=== PATIENT | male | born 1985 | race Caucasian/White ===

== ENCOUNTER 2018-03-13 19:11 | Inpatient (IN) | payer OTHER ==
[~2018-03-13] VITALS: Ht 165.1 cm; Wt 61.8 kg
[~2018-03-13 19:11] MED LIST: CEPH500 PO; CYCL10 PO; HYDR1TAB94 PO; Keflex500 MG PO; Levaquin750 MG PO; Naprosyn500 MG PO; Norco 5-325 Ta1 EACH PO; OXYC10TA19 PO; Percocet 5-3251 EACH PO; Roxicodone5 MG PO
[2018-03-13 20:41] LABS: BASOPHILS PERCENT AUTO 1 % (0-2); EOSINOPHILS ABSOLUTE AUTO 0.05 K/mm3 (0.00-0.68); EOSINOPHILS PERCENT AUTO 0 % (0-6); Hematocrit 48.8 % (37.0-53.0); Hemoglobin 15.7 g/dL (13.5-17.5); IMMATURE GRAN ABSOLUTE AUTO 0.19 K/mm3 (0.00-0.10); IMMATURE GRAN PERCENT AUTO 1 % (0-1); LYMPHOCYTES ABSOLUTE AUTO 2.23 K/mm3 (0.84-5.20); LYMPHOCYTES PERCENT AUTO 12 % (21-46); MONOCYTES ABSOLUTE AUTO 1.35 K/mm3 (0.16-1.47); MONOCYTES PERCENT AUTO 7 % (4-13); Mean Corpuscular HGB 30.3 pg (26.0-34.0); Mean Corpuscular HGB Conc 32.2 g/dL (31.5-36.5); Mean Corpuscular Volume 94 fL (80-100); NEUTROPHILS ABSOLUTE AUTO 15.33 K/mm3 (1.96-9.15); NEUTROPHILS PERCENT AUTO 80 % (41-73); Platelet Count 266 K/mm3 (150-400); RDW Coefficient Variation 13.1 % (11.7-14.2); RDW Standard Deviation 45.7 fL (35.1-46.3); Red Blood Cell Count 5.19 M/mm3 (4.30-5.90); White Blood Cell Count 19.25 K/mm3 (4.00-11.30)
[2018-03-13 21:04] LABS: Alanine Aminotransfer (ALT/SGP 22 U/L (12-78); Alk Phos 88 U/L (50-136); Anion Gap 9 mmol/L (6-16); Aspartate Aminotrans (AST/SGOT 17 U/L (12-37); Bilirubin, Total 1.3 mg/dL (0.1-1.0); Blood Urea Nitrogen 10 mg/dL (8-24); Bun/Creatinine Ratio 11.3 (12.0-20.0); CO2, Blood 25 mmol/L (21-32); Calcium, Blood 8.5 mg/dL (8.5-10.1); Chloride, Blood 99 mmol/L (98-108); Creatinine, Blood 0.88 mg/dL (0.60-1.20); Glomerular Filtration Rate >60 (60-); Glucose, Blood 100 mg/dL (70-99); Potassium, Blood 3.9 mmol/L (3.5-5.5); Sodium, Blood 133 mmol/L (136-145)
[2018-03-13 23:18] LABS: CPK Creatine Kinase 93 U/L (39-308)
[2018-03-13 23:21] LABS: Creatine Kinase MB < 1.0 ng/mL (0.0-3.6); Creatine Kinase MB Index 1.1 (0.0-4.0)
--- NOTE | 2018-03-14 06:42 | NUR ---
SHIFT SUMMARY 0025 RECEIVED PT TO 311 VIA W/C FROM ER. PT IS A&O AND ABLE TO TX SELF TO BED. PT ADMITTED FOR L ARM CELLULITIS. RECEIVED REPORT FROM KATIE OSORIO; PT TRIPPED OVER DOG ON FRONT PORCH AND RECEIVED SCRATCH ON ARM. ABX STARTED IN ER. PT RESTING L ARM ON ICE BAG WHEN COMING TO . ICE BAG REFILLED PRN. REDNESS/SWELLING CONTINUES. PT MEDICATED FOR C/O PAIN X1 THIS SHIFT. IVF'S AND ABX INFUSING PER EMAR. PT RESTING QUIETLY AT THIS TIME, SLEEPING. CALL LT IN REACH. ABLE TO MAKE NEEDS KNOWN.
[2018-03-14 09:22] LABS: Hematocrit 40.6 % (37.0-53.0); Hemoglobin 13.8 g/dL (13.5-17.5); Mean Corpuscular HGB 30.1 pg (26.0-34.0); Mean Platelet Volume 9.9 fL (9.1-12.4); Platelet Count 234 K/mm3 (150-400); RDW Coefficient Variation 13.2 % (11.7-14.2); RDW Standard Deviation 42.7 fL (35.1-46.3); Red Blood Cell Count 4.58 M/mm3 (4.30-5.90); White Blood Cell Count 16.71 K/mm3 (4.00-11.30)
[2018-03-14 09:26] LABS: Mean Corpuscular Volume 89 fL (80-100)
[2018-03-14 09:34] LABS: Alanine Aminotransfer (ALT/SGP 14 U/L (12-78); Albumin, Blood 3.2 g/dL (3.4-5.0); Albumin/Globulin Ratio 0.9 (0.8-1.8); Alk Phos 72 U/L (50-136); Anion Gap 8 mmol/L (6-16); Aspartate Aminotrans (AST/SGOT 14 U/L (12-37); Bilirubin, Total 1.4 mg/dL (0.1-1.0); Blood Urea Nitrogen 12 mg/dL (8-24); Bun/Creatinine Ratio 8.3 (12.0-20.0); CO2, Blood 24 mmol/L (21-32); Calcium, Blood 7.7 mg/dL (8.5-10.1); Chloride, Blood 107 mmol/L (98-108); Creatinine, Blood 1.44 mg/dL (0.60-1.20); Globulin, Blood 3.5 g/dL (2.2-4.0); Glomerular Filtration Rate >60 (60-); Glucose, Blood 98 mg/dL (70-99); Potassium, Blood 3.9 mmol/L (3.5-5.5); Sodium, Blood 139 mmol/L (136-145); Total Protein, Blood 6.7 g/dL (6.4-8.2)
--- NOTE | 2018-03-14 16:57 | NUR ---
PT GAVE THIS STUDENT NURSE PERMISSION TO CARE FOR HIM TOMORROW.
--- NOTE | 2018-03-14 19:19 | NUR ---
SHIFT SUMMARY BRETT'S L FOREARM CELLULITIS --RED AREA DECREASED IN SIZE AND INCREASED IN PAIN AND SWELLING AT SITE--ULTRASOUND PERFORMED, LOOKS LIKE ABSCESS FORMING. IVF AND TELE DISCONTINUED. PRN OXY AND FENTANYL WORKING WELL FOR PAIN. POSSIBLE I&d TOMORROW
[2018-03-14 23:52] LABS: Vancomycin, Trough 28.3 ug/mL (5.0-10.0)
[2018-03-15 05:37] LABS: BASOPHILS ABSOLUTE AUTO 0.05 K/mm3 (0.00-0.23); BASOPHILS PERCENT AUTO 0 % (0-2); EOSINOPHILS ABSOLUTE AUTO 0.21 K/mm3 (0.00-0.68); EOSINOPHILS PERCENT AUTO 1 % (0-6); Hematocrit 41.1 % (37.0-53.0); IMMATURE GRAN ABSOLUTE AUTO 0.21 K/mm3 (0.00-0.10); IMMATURE GRAN PERCENT AUTO 1 % (0-1); LYMPHOCYTES ABSOLUTE AUTO 2.26 K/mm3 (0.84-5.20); LYMPHOCYTES PERCENT AUTO 13 % (21-46); MONOCYTES ABSOLUTE AUTO 2.66 K/mm3 (0.16-1.47); MONOCYTES PERCENT AUTO 15 % (4-13); Mean Corpuscular HGB 30.1 pg (26.0-34.0); Mean Corpuscular HGB Conc 34.1 g/dL (31.5-36.5); Mean Corpuscular Volume 88 fL (80-100); Mean Platelet Volume 9.8 fL (9.1-12.4); NEUTROPHILS PERCENT AUTO 70 % (41-73); Platelet Count 238 K/mm3 (150-400); RDW Coefficient Variation 13.2 % (11.7-14.2); Red Blood Cell Count 4.65 M/mm3 (4.30-5.90); White Blood Cell Count 17.99 K/mm3 (4.00-11.30)
--- NOTE | 2018-03-15 05:56 | NUR ---
SHIFT SUMMARY NO ACUTE CHANGES TO PRESENT THIS SHIFT. PT STAYS AWAKE MOST OF NIGHT AND GOES TO SLEEP IN THE MORNINGS. PT MEDICATED FOR C/O PAIN AFTER MN. ICE BAGS GIVEN THRU OUT THE SHIFT FOR LFA. REDNESS AND SWELLING BECOMING MORE LOCALIZED ON FORARM, JUST BELOW ELBOW. NEW IV PLACED TO RFA, PT TOLERATED WELL. PER SHIFT REPORT, FRANCISCA IV HAD POSSIBLY STARTED TO LEAK. VANCO TROUGH DONE BEFORE MN DOSE, RESULTED HIGH. VANCO HELD AT THAT TIME. NEW LEVEL DRAWN THIS AM. PHARMACY MANAGING. PT IS A&O, INDEPENDANT TO [facility]. ABLE TO MAKE NEEDS KNOWN. MALE ELECTROMECHANICAL INSPECTOR STAYING IN WITH PT. POSSIBLE I&D ON LFA ABSCESS TODAY, PER LAST WRAPPER HANDS SPRAYER REPORT.
[2018-03-15 06:07] LABS: Vancomycin, Random 19.1 ug/mL
[2018-03-15 06:08] LABS: Bun/Creatinine Ratio 7.3 (12.0-20.0); Calcium, Blood 8.1 mg/dL (8.5-10.1); Creatinine, Blood 2.34 mg/dL (0.60-1.20); Potassium, Blood 3.9 mmol/L (3.5-5.5)
--- NOTE | 2018-03-15 19:12 | NUR ---
SHIFT SUMMARY: NO ACUTE CHANGES TO REPORT THIS SHIFT. PT A&O; CALM AND COOPERATIVE WITH CARE. MEDICATED FOR PAIN PER EMAR. CELLULITIS L FA; IV ABX CONTINUING. REPORT GIVEN TO ONCOMING RN.
--- NOTE | 2018-03-16 05:26 | NUR ---
SHIFT SUMMARY PER SHIFT REPORT, PT WANTED TO BECOME CONFIDENTIAL AND THEREFORE MOVED TO RM 324 FROM 311. PER REPORT, PT ALSO HAD LEFT HOSPITAL FOR OVER 2 HRS AND THEN RETURNED. PT INFORMED TO REMAIN IN RM OR RETURN IN REASONABLE AMOUNT OF TIME. PT LYING HF IN BED DURING SHIFT REPORT. LATER C/O PAIN AND REQUESTED PAIN MEDICATION. ADMINISTERED PER EMAR AND PT REQUEST. CONSULT CALLED TO DR MORRISON'S ANS PER ORDERS. NEW ORDERS PLACED ON CHART FOR PT TO BE MADE NPO AT [place]. PT INFORMED AND VERBALIZED UNDERSTANDING. PT LATER REQUESTED IV SITE TO RUQ BE REMOVED. SITE FLUSHED AND FOUND TO LEAK A VERY SM AMT. IV SITED D/C'D WNL'S. PT IS PRESENTLY NPO AND HAS BEEN SINCE FL. VS TAKEN THIS AM. TEMP INCREASED FROM PREVIOUS. ICE BAGS TO AXILLARY AND NECK PLACED. SWELLING TO L ARM DECREASED FROM TUESDAY. REMAINS RED. CALL LT IN REACH.
[2018-03-16 06:25] LABS: Vancomycin, Random 14.5 ug/mL
--- NOTE | 2018-03-16 07:30 | NUR ---
PT. SLEEPING, BEING KEPT NPO FOR I&D THIS MORNING WILL ALSO HOLD THE LOVENOX. SO SLEEPING ON COUCH IN ROOM.
--- NOTE | 2018-03-16 10:40 | NUR ---
PT. TO OR VIA CART. NEW IV IN RFA AND CEFTRIAXONE INFUSING AND VANCO SENT WITH PT.
--- NOTE | 2018-03-16 11:00 | NUR ---
Ambulatory in Day Surgery History, Chart, Medications and Allergies reviewed before start of procedure.Lungs clear T/O to Auscultation. Patient confirms NPO status and agrees with scheduled surgery. PT Nat WEAVER AT BEDSIDE. PT R ARM ELEVATED BY PATIENT.
--- NOTE | 2018-03-16 12:45 | NUR ---
03/16/18 1245 Bekah Welch A PATIENT ON SCHEDULED VANCO AND ROCEPHIN. NO LOCAL USED.
--- NOTE | 2018-03-16 17:31 | NUR ---
PT. LYING QUIETLY SLEEPING. NO S/S OF PAIN SINCE RECEIVING DAJUAN AND TYLENOL. GOOD ROM WITH LEFT HAND AND FINERS, DENIES PAIN AND NAUSEA. NO DRAINAGE NOTED ON DRESSING.
--- NOTE | 2018-03-17 04:21 | NUR ---
SHIFT SUMMARY PT HAD SOME ISSUES WITH UNCONTROLLED PAIN DURING SHIFT. PT ARM HAD INCREASED SWELLING NOTED. PT WAS INSTRUCTED TO ELEVATE ARM AND USE PROVIDED ICE PACK. SWELLING DECREASED BUT PAIN REMAINED UNCONTROLLED. PROVIDER CALLED AND FREQUENCY OF PAIN MEDS WAS CHANGED. PT RESPONDED WELL TO CHANGE WITH PAIN BEING MANAGED WELL. PT IS CURRENTLY SLEEPING AND BREATHING EASY. WILL CONTINUE TO ASSESS ARM AND TX PAIN PER EMAR. CALL LIGHT IN REACH.
--- NOTE | 2018-03-17 04:53 | NUR ---
DURING MORNING VSS PT HAD TEMP TX PER EMAR. PT ALSO HAD INCREASED DISCOMFORT AND WAS TX PER EMAR. PT DISCOMFORT DECREASED.
[2018-03-17 05:00] LABS: BASOPHILS ABSOLUTE AUTO 0.03 K/mm3 (0.00-0.23); BASOPHILS PERCENT AUTO 0 % (0-2); EOSINOPHILS ABSOLUTE AUTO 0.06 K/mm3 (0.00-0.68); EOSINOPHILS PERCENT AUTO 0 % (0-6); Hematocrit 42.8 % (37.0-53.0); Hemoglobin 13.9 g/dL (13.5-17.5); IMMATURE GRAN PERCENT AUTO 1 % (0-1); LYMPHOCYTES ABSOLUTE AUTO 1.99 K/mm3 (0.84-5.20); LYMPHOCYTES PERCENT AUTO 14 % (21-46); MONOCYTES PERCENT AUTO 15 % (4-13); Mean Corpuscular HGB 29.8 pg (26.0-34.0); Mean Corpuscular HGB Conc 32.5 g/dL (31.5-36.5); Mean Platelet Volume 9.9 fL (9.1-12.4); NEUTROPHILS ABSOLUTE AUTO 10.14 K/mm3 (1.96-9.15); NEUTROPHILS PERCENT AUTO 70 % (41-73); Platelet Count 279 K/mm3 (150-400); RDW Coefficient Variation 13.3 % (11.7-14.2); RDW Standard Deviation 45.6 fL (35.1-46.3); Red Blood Cell Count 4.66 M/mm3 (4.30-5.90); White Blood Cell Count 14.52 K/mm3 (4.00-11.30)
[2018-03-17 05:01] LABS: Mean Corpuscular Volume 92 fL (80-100)
[2018-03-17 05:25] LABS: Alanine Aminotransfer (ALT/SGP 10 U/L (12-78); Albumin, Blood 2.8 g/dL (3.4-5.0); Albumin/Globulin Ratio 0.7 (0.8-1.8); Alk Phos 66 U/L (50-136); Anion Gap 7 mmol/L (6-16); Aspartate Aminotrans (AST/SGOT 9 U/L (12-37); Bilirubin, Total 0.7 mg/dL (0.1-1.0); Blood Urea Nitrogen 20 mg/dL (8-24); Bun/Creatinine Ratio 7.6 (12.0-20.0); CO2, Blood 24 mmol/L (21-32); Calcium, Blood 7.7 mg/dL (8.5-10.1); Chloride, Blood 106 mmol/L (98-108); Creatinine, Blood 2.64 mg/dL (0.60-1.20); Globulin, Blood 4.3 g/dL (2.2-4.0); Glomerular Filtration Rate 30 (60-); Glucose, Blood 87 mg/dL (70-99); Potassium, Blood 4.6 mmol/L (3.5-5.5); Sodium, Blood 137 mmol/L (136-145); Total Protein, Blood 7.1 g/dL (6.4-8.2); Vancomycin, Trough 15.8 ug/mL (5.0-10.0)
--- NOTE | 2018-03-17 08:00 | NUR ---
PT PLEASANT COOP A/O. STATES PAIN IN L ARM WHERE CELLULITIS. SOME SWELLING AND REDNESS NOTED IN HAND ALSO. DR ZAMORA NOTIFIED. MED FOR PAIN PER EMAR. PT TO CALL WHEN MEDS AVAIL. H/R REG, NO MURMER NOTED. NO TELE. LUNGS CLEAR, RESP EASY, UNLABORED. ON R/A. BT X4 LAST BM THIS AM. VOIDS INDEPENDANT TO BATHROOM, BED IN LOW POSITION, CALL LITE IN REACH, CALLS APPROP
--- NOTE | 2018-03-17 14:00 | NUR ---
PT DR SANCHEZ IN ROOM. REQUESTED ARM SLING TYPE SETUP. TO KEEP ABOVE HEART. DONE
--- NOTE | 2018-03-17 18:42 | NUR ---
PT SITTING UP WATCHING TV. LET ARM DOWN FROM SLING FOR A FEW MIN. JUST CAME BACK FROM VOIDING. PT STATES PAIN UP SOME. WILL PASS TO DEAN RN TO ASSESS. NO OTHER CONCERNS AT THIS TIME. BED IN LOW POSITION, CALL LITE IN REACH. CALLS APPROP
--- NOTE | 2018-03-18 04:53 | NUR ---
SHIFT SUMMARY PT SLEPT POOR, HAS BEEN REQUESTING PAIN MEDICATIONS EVERY 4 HOURS, ALSO RECEIVING BREAKTHROUGH PAIN MEDICATION. HAS BEEN KEEPING LEFT ARM ELEVATED DURING THE NIGHT. NO ACUTE CHANGES NOTED, WILL CONTINUE TO MONITOR.
[2018-03-18 05:04] LABS: BASOPHILS ABSOLUTE AUTO 0.05 K/mm3 (0.00-0.23); BASOPHILS PERCENT AUTO 0 % (0-2); EOSINOPHILS ABSOLUTE AUTO 0.14 K/mm3 (0.00-0.68); EOSINOPHILS PERCENT AUTO 1 % (0-6); Hematocrit 37.6 % (37.0-53.0); Hemoglobin 12.6 g/dL (13.5-17.5); IMMATURE GRAN ABSOLUTE AUTO 0.07 K/mm3 (0.00-0.10); IMMATURE GRAN PERCENT AUTO 1 % (0-1); LYMPHOCYTES ABSOLUTE AUTO 2.05 K/mm3 (0.84-5.20); LYMPHOCYTES PERCENT AUTO 16 % (21-46); MONOCYTES ABSOLUTE AUTO 1.72 K/mm3 (0.16-1.47); MONOCYTES PERCENT AUTO 13 % (4-13); Mean Corpuscular HGB 30.1 pg (26.0-34.0); Mean Corpuscular HGB Conc 33.5 g/dL (31.5-36.5); Mean Corpuscular Volume 90 fL (80-100); NEUTROPHILS ABSOLUTE AUTO 9.09 K/mm3 (1.96-9.15); NEUTROPHILS PERCENT AUTO 69 % (41-73); Platelet Count 287 K/mm3 (150-400); RDW Coefficient Variation 13.5 % (11.7-14.2); RDW Standard Deviation 44.7 fL (35.1-46.3); Red Blood Cell Count 4.18 M/mm3 (4.30-5.90); White Blood Cell Count 13.12 K/mm3 (4.00-11.30)
[2018-03-18 05:29] LABS: Albumin, Blood 2.4 g/dL (3.4-5.0); Anion Gap 8 mmol/L (6-16); Blood Urea Nitrogen 17 mg/dL (8-24); Bun/Creatinine Ratio 7.1 (12.0-20.0); CO2, Blood 23 mmol/L (21-32); Calcium, Blood 7.7 mg/dL (8.5-10.1); Chloride, Blood 108 mmol/L (98-108); Creatinine, Blood 2.39 mg/dL (0.60-1.20); Glomerular Filtration Rate 34 (60-); Glucose, Blood 101 mg/dL (70-99); Phosphorus, Blood 4.6 mg/dL (2.5-4.9); Potassium, Blood 4.4 mmol/L (3.5-5.5); Sodium, Blood 139 mmol/L (136-145)
[2018-03-18 05:37] LABS: Magnesium, Blood 2.4 mg/dL (1.6-2.4)
--- NOTE | 2018-03-18 17:00 | NUR ---
SHIFT SUMMARY- PT A/OX4, INDEP OOB. PT MEDICATED Q4H WITH ROXICODONE AND FENTANYL FOR PAIN TO LEFT ARM. LEFT ARM DRESSING REMOVED AND PT UP AND SHOWERED. STEPHANIE DRAIN IN PLACE, SWELLING PRESENT BUT PT REPORTS IMPROVED. PT REMAINS ON IVF PER DR STALEY. NO OTHER ACUTE CHANGES THIS SHIFT.
[2018-03-19 05:00] LABS: BASOPHILS ABSOLUTE AUTO 0.03 K/mm3 (0.00-0.23); BASOPHILS PERCENT AUTO 0 % (0-2); EOSINOPHILS ABSOLUTE AUTO 0.29 K/mm3 (0.00-0.68); EOSINOPHILS PERCENT AUTO 3 % (0-6); Hematocrit 39.9 % (37.0-53.0); Hemoglobin 13.1 g/dL (13.5-17.5); IMMATURE GRAN ABSOLUTE AUTO 0.05 K/mm3 (0.00-0.10); IMMATURE GRAN PERCENT AUTO 0 % (0-1); LYMPHOCYTES ABSOLUTE AUTO 2.07 K/mm3 (0.84-5.20); LYMPHOCYTES PERCENT AUTO 18 % (21-46); MONOCYTES ABSOLUTE AUTO 1.11 K/mm3 (0.16-1.47); MONOCYTES PERCENT AUTO 10 % (4-13); Mean Corpuscular HGB Conc 32.8 g/dL (31.5-36.5); Mean Corpuscular Volume 92 fL (80-100); Mean Platelet Volume 9.9 fL (9.1-12.4); NEUTROPHILS ABSOLUTE AUTO 7.68 K/mm3 (1.96-9.15); NEUTROPHILS PERCENT AUTO 68 % (41-73); Platelet Count 285 K/mm3 (150-400); RDW Coefficient Variation 13.2 % (11.7-14.2); RDW Standard Deviation 44.8 fL (35.1-46.3); Red Blood Cell Count 4.36 M/mm3 (4.30-5.90); White Blood Cell Count 11.23 K/mm3 (4.00-11.30)
--- NOTE | 2018-03-19 05:04 | NUR ---
SHIFT SUMMARY PT SLEPT WELL, STILL REQUESTING PAIN MEDICATION ABOUT EVERY 4 HOURS. PT NEEDED BREAKTHROUGH ONLY ONE TIME TONIGHT. NO ACUTE CHANGES NOTED, WILL CONTINUE TO MONITOR.
[2018-03-19 05:19] LABS: Albumin, Blood 2.6 g/dL (3.4-5.0); Anion Gap 7 mmol/L (6-16); Blood Urea Nitrogen 18 mg/dL (8-24); CO2, Blood 24 mmol/L (21-32); Chloride, Blood 110 mmol/L (98-108); Creatinine, Blood 2.25 mg/dL (0.60-1.20); Glomerular Filtration Rate 36 (60-); Glucose, Blood 94 mg/dL (70-99); Magnesium, Blood 2.4 mg/dL (1.6-2.4); Phosphorus, Blood 5.2 mg/dL (2.5-4.9); Potassium, Blood 4.6 mmol/L (3.5-5.5); Sodium, Blood 141 mmol/L (136-145)
--- NOTE | 2018-03-19 18:31 | NUR ---
PATIENT A/OX4, UP INDEPENDENTLY IN ROOM. DRESSING CHANGED TODAY AFTER SHOWER. SWELLING AND REDNESS HAS IMPROVED TO L ARM. STEPHANIE DRAIN INTACT AND DRAINING SMALL AMOUNT OF SEROSANG DRAINAGE. VSS, ON RA. OXYCODONE GIVEN Q4 HOURS TO TREAT PAIN, FENTANYL NEEDED X1 FOR BREAKTHROUGH PAIN. CALM AND COOPERATIVE WITH CARE, CALLS APPROPRIATELY FOR ASSISTANCE. 20G IV TO R FA WNL, D5NS @ 75ML/HR INFUSING.
[2018-03-20 04:56] LABS: Hemoglobin 12.3 g/dL (13.5-17.5)
[2018-03-20 05:21] LABS: Albumin, Blood 2.7 g/dL (3.4-5.0); Anion Gap 8 mmol/L (6-16); Blood Urea Nitrogen 17 mg/dL (8-24); Bun/Creatinine Ratio 8.3 (12.0-20.0); CO2, Blood 23 mmol/L (21-32); Calcium, Blood 8.1 mg/dL (8.5-10.1); Chloride, Blood 109 mmol/L (98-108); Creatinine, Blood 2.06 mg/dL (0.60-1.20); Glomerular Filtration Rate 40 (60-); Glucose, Blood 96 mg/dL (70-99); Magnesium, Blood 2.5 mg/dL (1.6-2.4); Phosphorus, Blood 5.5 mg/dL (2.5-4.9); Potassium, Blood 4.7 mmol/L (3.5-5.5); Sodium, Blood 140 mmol/L (136-145)
--- NOTE | 2018-03-20 05:27 | NUR ---
SHIFT SUMMARY PT SLEPT POORLY, NO ACUTE CHANGES NOTED. PT RECEIVING PRN PAIN MEDICATION EVERY 4 HOURS PER REQUEST. HAS ALSO RECEIVED 2 BREAKTHROUGH DOSES OF FENTANYL. IVF'S INFUSING PER PUMP WITHOUT DIFFICULTY. WILL CONTINUE TO MONITOR.
[2018-03-20 15:06] LABS: FINAL INTERPRETATION Negative (.); HIV 1 AB Negative (Negative); HIV 2 AB Negative (Negative)
--- NOTE | 2018-03-20 19:57 | NUR ---
SHIFT SUMMARY PAIN HAS BEEN MANAGED WITH PO PAIN MEDICATION THIS SHIFT. PT HAS BEEN OUTSIDE FREQUENTLY T/O THE SHIFT. DRESSING CHANGED, MINIMAL DRAINAGE NOTED. PT IS INDEPEDENT. VSS. REPORT GIVEN TO ANTONINO OSORIO.
--- NOTE | 2018-03-21 04:22 | NUR ---
03/21/18 0420 VITALS STABLE. LEFT ARM DRESSING DRY AND INTACT. EDEMA PRESENT TO LEFT HAND AND ARM. PT TRYS TO KEEP LEFT ARM ELEVATED ON CHEST OR PILLOW MOST OF SHIFT. ABLE TO MOVE FINGERS WITHOUT ISSUES. MEDICATED SEVERAL TIMES FOR PAIN TO LEFT ARM/ELBOW.
[2018-03-21 05:01] LABS: Hematocrit 37.7 % (37.0-53.0); Hemoglobin 12.2 g/dL (13.5-17.5)
[2018-03-21 05:27] LABS: Albumin, Blood 2.6 g/dL (3.4-5.0); Anion Gap 9 mmol/L (6-16); Blood Urea Nitrogen 18 mg/dL (8-24); Bun/Creatinine Ratio 9.2 (12.0-20.0); CO2, Blood 22 mmol/L (21-32); Calcium, Blood 7.7 mg/dL (8.5-10.1); Chloride, Blood 111 mmol/L (98-108); Creatinine, Blood 1.96 mg/dL (0.60-1.20); Glomerular Filtration Rate 42 (60-); Glucose, Blood 205 mg/dL (70-99); Magnesium, Blood 2.4 mg/dL (1.6-2.4); Phosphorus, Blood 4.8 mg/dL (2.5-4.9); Potassium, Blood 4.5 mmol/L (3.5-5.5); Sodium, Blood 142 mmol/L (136-145)
[2018-03-21] MEDS ORDERED: ACET325 PO (14:31)
[2018-03-21] MEDS ORDERED: CEPH500 PO (14:32)
--- NOTE | 2018-03-21 15:35 | NUR ---
DISCHARGE SUMMARY PATIENT A&O X4, INDEPENDENT IN THE ROOM. ALL DISCHARGE INFORMATION REVIEWED INCLUDING FOLLOW UP APPOINTMENTS, MEDICATIONS, AND PATIENT INFORAMTION. MEDICATIONS FAXED TO [facility]. 1 HARD COPY PRESCRIPTION SENT WITH THE PATIENT. IV D/C, WNL. PATIENT WALKED OUT WITH FAMILY AT HIS SIDE, ALL BELONGNINGS IN HAND.
== END 2018-03-21 15:00 | disposition home or self-care (01) | DRG 872 ==
LOC: ER 19:11 → MEDS 23:32
PROVIDERS: Emergency Medicine; Internal Medicine; Internal Medicine Nephrology; Pharmacist; Physician Assistant; Surgery; ADMIT Internal Medicine
PROC: 0H9EXZZ Drainage of Left Lower Arm Skin, External Approach (ICD-10-PCS; principal; 2018-03-16 12:30)
DX: A41.9 Sepsis, unspecified organism (principal); N17.9 Acute kidney failure, unspecified; L03.114 Cellulitis of left upper limb; F11.20 Opioid dependence, uncomplicated; F17.210 Nicotine dependence, cigarettes, uncomplicated
CPT/HCPCS: 36415; 73090; 76770; 76882; 80048; 80053; 80069; 80202; 82550; 82553; 83605; 83735; 84443; 85014; 85018; 85025; 85027; 86140; 86592; 86701; 86702; 87040; 87070; 87075; 87205; 96365; 96375; 99284-25; J0696; J2060; J2250; J2543; J3010; J3370; J7030; J7042; J7120

== ENCOUNTER 2018-03-24 17:30 | Emergency (ER) | payer OTHER ==
[~2018-03-24] VITALS: Ht 165.1 cm; Wt 61.2 kg
[~2018-03-24 17:30] MED LIST changes: +ACET325 PO
[2018-03-24] MEDS ORDERED: OXYC10ER PO (17:37)
== END 2018-03-24 17:44 | disposition home or self-care (01) ==
LOC: ER 17:30
DX: Z76.0 Encounter for issue of repeat prescription (principal); F17.290 Nicotine dependence, other tobacco product, uncomplicated; Z79.899 Other long term (current) drug therapy
CPT/HCPCS: 99281

== ENCOUNTER 2019-08-02 22:10 | Emergency (ER) | payer OTHER ==
[~2019-08-02] VITALS: Ht 165.1 cm; Wt 61.2 kg
[~2019-08-02 22:10] MED LIST changes: +OXYC10ER PO
[2019-08-02] MEDS ORDERED: Cleocin HCl300 MG PO (22:57)
[2019-08-02] MEDS ORDERED: PERM5TC TOP (22:57)
== END 2019-08-02 23:20 | disposition home or self-care (01) ==
LOC: ER 22:10
DX: B86 Scabies (principal); B88.9 Infestation, unspecified; F17.290 Nicotine dependence, other tobacco product, uncomplicated
CPT/HCPCS: 99282